=== PATIENT | female | born 1965 | race Caucasian/White ===

== ENCOUNTER 2020-10-18 18:08 | Emergency (ER) | payer SELFPAY | END 2020-10-18 18:09 | disposition left against medical advice (07) | PROVIDERS: Emergency Provider Emergency Medicine | DX: Z04.9 Encounter for examination and observation for unspecified reason (principal) | CPT/HCPCS: 99199 ==

== ENCOUNTER 2020-10-18 21:31 | Emergency (ER) | payer SELFPAY ==
[2020-10-18 21:36] VITALS: BP 161/85; PULSE 67; RESP 16; TEMP 36.5; O2SAT 99
--- NOTE | 2020-10-19 01:26 | PC.NURSE ---
pt states she wants to leave at this time and will go to in the AM. pt instructed on risks of leaving, benefits of staying. informed she can return for any worsening symptoms/concerns. refuses exit vitals.
== END 2020-10-19 01:26 | disposition left against medical advice (07) ==
DX: Z53.21 Procedure and treatment not carried out due to patient leaving prior to being seen by health care provider (principal)
CPT/HCPCS: 99199

== ENCOUNTER 2024-12-15 13:58 | Emergency (ER) | payer OTHER, SELFPAY ==
--- NOTE | ~2024-12-15 | CT_ITS ---
Exam: CT abdomen and pelvis with contrast Clinical History: [Left lower quadrant abdominal pain. Diarrhea. ] Comparison: [ None available] Technique: Multiple axial CT images of the abdomen and pelvis were obtained with IV contrast. Sagittal and coronal reformatted images were obtained. FINDINGS: Lung bases: [There is a 1 cm pulmonary nodule in the right lower lobe. A chest CT is recommended. ] Liver: [Fatty liver.No mass.] [ No intrahepatic biliary duct dilatation.] Gallbladder: [ No wall thickening or stones.] Common bile duct: [ Normal caliber.] [ No stones.] Spleen: [ Within normal limits.] Pancreas: [ No mass. No pancreatic fluid collection.] Adrenals: [ No masses.] Kidneys: [ No masses. No hydronephrosis.][ There is a too small to characterize low-attenuation lesion in the right kidney.] Lymph nodes: [ No adenopathy in the abdomen or pelvis.] Stomach, small bowel and colon: Short segment focal thickening of the staples of the descending colon with a small amount of surrounding fat stranding. Peritoneum cavity: Small to moderate amount of fluid in the pelvis. Bladder: [ Unremarkable.] Osseous structures: [ No acute fracture or destructive lesion.] [ Multilevel degenerative change in the visualized spine.] Abdominal aorta: [ No aneurysm.] Additional findings: There is a 4.6 x 5.6 a 4.0 cm oval isodense mass in the right hemipelvis which abuts the uterus. Differential includes subserosal uterine fibroid or adnexal mass. An MRI of the pelvis with and without contrast is recommended for further assessment. IMPRESSION: 1. Short segment focal thickening of the staples of the descending colon with a small amount of surrounding fat stranding. The finding may be secondary to acute colitis. Recommend follow-up to resolution to exclude an underlying mass. 2. Small to moderate amount of nonspecific fluid in the pelvis. 3. There is a 1.0 cm pulmonary nodule in the right lower lobe. A chest CT is recommended. 4. Fatty liver. 5.There is a 4.6 x 5.6 a 4.0 cm mass in the right hemipelvis which abuts the uterus. Differential includes subserosal uterine fibroid or adnexal mass. An MRI of the pelvis with and without contrast is recommended for further assessment. Reviewed, dictated and finalized at location Q. IMPRESSION: 1. Short segment focal thickening of the staples of the descending colon with a s mall amount of surrounding fat stranding. The finding may be secondary to acute colitis. Recommend follow-up to resolution to exclude an underlying mass. 2. Small to moderate amount of nonspecific fluid in the pelvis. 3. There is a 1.0 cm pulmonary nodule in the right lower lobe. A chest CT is re commended. 4. Fatty liver. 5.There is a 4.6 x 5.6 a 4.0 cm mass in the right hemipelvis which abuts the ut erus. Differential includes subserosal uterine fibroid or adnexal mass. An MRI of the pelvis with and without contrast is recommended for further assessment.
[2024-12-15 14:03] VITALS: BP 174/89; PULSE 79; RESP 20; TEMP 36.7; O2SAT 96
[2024-12-15 14:15] LABS: Hematocrit 41.3 % (37.0-47.0); Hemoglobin 13.5 g/dL (12.0-15.0); Immature Granulocyte Percent A 0.3 % (0-0.5); Lymphocytes Absolute Auto 2.78 K/mm3 (0.9-3.2); Mean Corpuscular HGB Conc 32.7 g/dl (32-36); Mean Corpuscular Hemoglobin 27.4 pg (26-34); Mean Corpuscular Volume 83.9 fl (80-100); Nucleated Red Blood Cells Absolute Auto 0.000 K/mm3 (0.0-0.012); Nucleated Red Blood Cells Perc 0.0 % (0.0-0.2); Platelet Count Result 292 k/mm3 (150-375); Red Blood Count 4.92 M/mm3 (4.2-5.4); White Blood Count 11.6 K/mm3 (4.5-10.0)
[2024-12-15 14:28] LABS: Alanine Aminotransferase 36 U/L (6-35); Albumin Level 4.8 g/dL (3.5-5.1); Alkaline Phosphatase 95 U/L (38-126); Anion Gap 9 mmol/L (4-12); Aspartate Amino Transferase 29 U/L (14-36); Bilirubin,Total 0.6 mg/dL (0.2-1.3); Blood Urea Nitrogen 18 mg/dL (7-17); Calcium 9.8 mg/dL (8.4-10.2); Carbon Dioxide 23 mmol/L (22-30); Chloride 108 mmol/L (98-107); Estimated CRCL calculation 71 ml/min; Estimated Glomerular Filt Rate > 60; Glucose 107 mg/dL (65-110); Lipase 96 U/L (23-300); Potassium 4.0 mmol/L (3.4-5.0); Sodium 140 mmol/L (137-145); Total Protein 7.9 g/dL (6.3-8.2)
--- NOTE | 2024-12-15 14:46 | PC.NURSE ---
Pt. ambulatory to bathroom to provide urine sample.
--- OUTSIDE RECORDS SUMMARY | 2024-12-15 14:51 | XMS_ITS | Clinical Summary ---
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 Role Phone Unavailable Primary Care Provider Unavailabl e Social History Tobacco Use Types Packs/Day Years Used Date Smoking Tobacco: Never Assessed Comments Unknown Sex and Gender Information Value Date Recorded Sex Assigned at Not on file Legal Sex Female 8:01 PM CDT Gender Identity Not on file Sexual Orientation Not on file Plan of Treatment Health Maintenance Due Date Last Done Comments Cervical Cancer Screening Pa p Smear (Age 30 to 64) Every 3 Years 1966 Colorectal Cancer Screening Colonoscopy (10 Years) 1966 Annual Physical 1969 Hepatitis C 1984 DTaP, Tdap and Td Vaccines ( 1 - Tdap) 1985 Hepatitis B Vaccines (1 of 3 - 19+ 3-dose series) 1985 Cervical Cancer Screening Pa p with HPV Testing (Age 30 to 64) Every 5 Years 1996 Cervical Cancer Screening with HPV 1996 Mammogram Screening 2006 Pneumococcal Vaccine: 50+ Ye ars (1 of 1 - PCV) 2016 Zoster Vaccines (1 of 2) 2016 COVID-19 Vaccine ( - 2023-2 5 season) 2024 Meningococcal B Vaccine Aged Out No l onger eligible based on patient's age to complete this topic Meningococcal Vaccine Aged Out No harsh fernando eligible based on patient's age to complete this topic RSV Immunizations Under 20 Months Aged Out No longer eligible based on patient's age to complete this topic
[2024-12-15] MEDS: SODIUM CHLORIDE 0.9% IV 1,000 ML 999 ML IV CONT (15:19)
--- NOTE | 2024-12-15 15:20 | PC.NURSE ---
CT notified that pt. is ready for imaging. Pt. states she has gone through menopause and will sign a form stating she is not .
--- NOTE | 2024-12-15 15:22 | ED.ABDPAIN ---
HPI - Abdominal Pain General Chief Complaint: Abdominal Pain Stated Complaint: abd pain Time Seen by Provider: 12/15/24 14:05 Source: patient Mode of arrival: ambulatory Limitations: no limitations History of Present Illness HPI narrative: Patient is a 59 year old female who presents the ED with report of diarrhea/abdominal pain. Patient reports she ate yogurt last night and did not agree with her. She has had diffuse lower abdominal cramping since then with diarrhea. Reports her most recent episode of diarrhea this morning was slightly pink in color which prompted her presentation. Denies melena. Denies fevers, nausea, vomiting. Related Data Allergies Allergy/AdvReac Type Severity Reaction Status Date / Time Aminoglycosides Allergy Mild Rash Verified 12/15/24 14:07 bacitracin Allergy Mild Rash Verified 12/15/24 14:07 neomycin Allergy Mild Rash Verified 12/15/24 14:07 Sulfa (Sulfonamide Allergy Mild Rash Verified 12/15/24 14:07 Antibiotics) POLYMYXINBSULF Allergy Mild Rash Uncoded 06/23/08 14:28 Review of Systems Review of Systems: All systems reviewed & are unremarkable except as noted in HPI. All systems reviewed & are unremarkable except as noted in HPI and below Exam Narrative: GENERAL: Well appearing, obese with BMI of 36.2, non-toxic, in no acute distress. HEAD: Normocephalic, atraumatic. RESPIRATORY: Airway patent, respirations nonlabored. Clear to auscultation bilaterally, no rales, rhonchi, wheezing. CARDIOVASCULAR: Regular rate and rhythm without murmurs, rubs, or gallops. ABDOMINAL: Soft, mild tenderness to palpation in left lower abdomen, no rebound, nondistended. Normoactive BS. MUSCULOSKELETAL: Moves all extremities. No gross deformities. SKIN: Warm, dry, normal color. NEURO: A&O X3. Speech clear. Cranial nerves II-XII grossly intact. Steady gait. No ataxic movements. PSYCHIATRIC: Appropriate mood and affect. Normal interaction. Course Vital Signs Vital signs: Vital Signs Temperature 98.1 F 12/15/24 14:03 Pulse Rate 79 12/15/24 14:03 Respiratory Rate 20 12/15/24 14:03 Blood Pressure 174/89 H 12/15/24 14:03 Pulse Oximetry 96 12/15/24 14:03 Oxygen Delivery Room Air 12/15/24 14:03 Temperature 98.1 F 12/15/24 14:03 Pulse Rate 63 12/15/24 17:03 Respiratory Rate 16 12/15/24 17:03 Blood Pressure 151/90 H 12/15/24 17:03 Pulse Oximetry 99 12/15/24 17:03 Oxygen Delivery Room Air 12/15/24 14:03 MDM - Abdominal Pain MDM Narrative Medical decision making narrative: Patient presented to ED with left lower abdominal cramping and diarrhea. Began after eating yogurt last night. Vital signs stable upon arrival. Patient in no acute distress. Cbc with blood cell count of 11.6. Stable electrolytes. Normal kidney function. Mag WNL. UA w/o signs of infection, trace ketones. Patient given fluids. She did not want anything for pain currently. CT abd/pelvis obtained: IMPRESSION: 1. Short segment focal thickening of the staples of the descending colon with a small amount of surrounding fat stranding. The finding may be secondary to acute colitis. Recommend follow-up to resolution to exclude an underlying mass. 2. Small to moderate amount of nonspecific fluid in the pelvis. 3. There is a 1.0 cm pulmonary nodule in the right lower lobe. A chest CT is recommended. 4. Fatty liver. 5.There is a 4.6 x 5.6 a 4.0 cm mass in the right hemipelvis which abuts the uterus. Differential includes subserosal uterine fibroid or adnexal mass. An MRI of the pelvis with and without contrast is recommended for further assessment. Colitis is consistent with clinical picture. Will treat for such. Will start on abx given elevated WBC. Will also rx bentyl/zofran/short course of [place] for home. Did update patient on pulmonary nodule and pelvic mass, advised close f/u with PCP for further imaging of this. Patient given strict return precautions. She is in agreement plan. Discharged in stable condition. Medical Records Attestation: I reviewed the patient's medical records. Lab Data Attestation: I reviewed the patient's lab results. 12/15/24 14:09 12/15/24 14:09 Labs: Lab Results 12/15/24 12/15/24 12/15/24 Range/Units 14:06 14:09 15:12 WBC 11.6 H (4.5-10.0) K/mm3 RBC 4.92 (4.2-5.4) M/mm3 Hgb 13.5 (12.0-15.0) g/dL Hct 41.3 (37.0-47.0) % MCV 83.9 (80-100) fl MCH 27.4 (26-34) pg MCHC 32.7 (32-36) g/dl RDW 13.5 (11.5-14.5) % Plt Count 292 (150-375) k/mm3 MPV 10.7 H (7.4-10.4) fl Immature Gran % (Auto) 0.3 (0-0.5) % Neut % (Auto) 70.7 (45.5-73.1) % Lymph % (Auto) 23.9 (18.3-44.2) % [place] % (Auto) 4.4 (2.6-8.5) % Eos % (Auto) 0.4 (0-4.4) % Baso % (Auto) 0.3 (0.2-1.2) % Lymph # (Auto) 2.78 (0.9-3.2) K/mm3 [place] # (Auto) 0.5 (0.1-0.6) K/mm3 Eos # (Auto) 0.1 (0-0.3) K/mm3 Baso # (Auto) 0.0 (0.0-0.1) K/mm3 Abs Immat Gran (auto) 0.03 (0.00-0.031) K/mm3 Absolute Neuts (auto) 8.2 H (1.3-6.7) K/mm3 Absolute Nucleated RBC 0.000 (0.0-0.012) K/mm3 Nucleated RBC % 0.0 (0.0-0.2) % Sodium 140 (137-145) mmol/L Potassium 4.0 (3.4-5.0) mmol/L Chloride 108 H (98-107) mmol/L Carbon Dioxide 23 (22-30) mmol/L Anion Gap 9 (4-12) mmol/L BUN 18 H (7-17) mg/dL Creatinine 0.92 (0.7-1.0) mg/dL Estim Creat Clear Calc 71 ml/min Estimated GFR > 60 (59 - ) Glucose 107 (65-110) mg/dL Calcium 9.8 (8.4-10.2) mg/dL Magnesium 2.0 (1.6-2.3) mg/dL Total Bilirubin 0.6 (0.2-1.3) mg/dL AST 29 (14-36) U/L ALT 36 H (6-35) U/L Alkaline Phosphatase 95 (38-126) U/L Total Protein 7.9 (6.3-8.2) g/dL Albumin 4.8 (3.5-5.1) g/dL Lipase 96 (23-300) U/L Urine Color Yellow (Yellow) Urine Appearance Clear (Clear) Urine pH 5.5 (5.0-9.0) Ur Specific [place] 1.011 (1.001-1.035) Urine Protein Negative (Negative) mg/dL Urine Glucose (UA) Negative (Negative) mg/dL Urine Ketones Trace H (Negative) mg/dL Ur Blood (Man) Trace (Negative) Urine Nitrate Negative (Negative) Urine Bilirubin Negative (Negative) Urine Urobilinogen 0.2 (<2.0) mg/dL Leukocyte Esterase Rfl Negative (Negative) ELIZABETH/UL Urine RBC 0-2 (0-2) /hpf Urine WBC 0-5 (0-3) /hpf Ur Squamous Epith Cells None seen (Few) /hpf Urine Bacteria None seen /hpf Urine Casts 0-2 Imaging Data Attestation: I personally reviewed and interpreted this imaging study as follows: Radiologist's impression: ITS Impressions Abdomen/Pelvis CT 12/15/24 16:24 IMPRESSION: 1. Short segment focal thickening of the staples of the descending colon with a small amount of surrounding fat stranding. The finding may be secondary to acute colitis. Recommend follow-up to resolution to exclude an underlying mass. 2. Small to moderate amount of nonspecific fluid in the pelvis. 3. There is a 1.0 cm pulmonary nodule in the right lower lobe. A chest CT is recommended. 4. Fatty liver. 5.There is a 4.6 x 5.6 a 4.0 cm mass in the right hemipelvis which abuts the uterus. Differential includes subserosal uterine fibroid or adnexal mass. An MRI of the pelvis with and without contrast is recommended for further assessment. Discharge Plan Discharge Clinical Impression: Colitis, Incidental pulmonary nodule, Pelvic mass Patient Disposition: Home Condition: Stable Instructions: Antibiotic Form, Clear Liquid Diet (ED), Colitis (ED) Additional Instructions: Take antibiotics as prescribed (Ciprofloxacin/Flagyl). Recommend Tylenol, ibuprofen, Bentyl as needed for further abdominal discomfort. [place] as needed for more severe pain. Utilize zofran as needed for further nausea. Increase fluid intake. Recommend electrolyte rich fluids, gatorade, pedialyte, body armour. Recommend clear liquids or bland diet until symptoms improve, such as bananas, rice, applesauce, toast, or crackers. Follow up with your primary care doctor for further evaluation. Return to the ED if you experience worsening or severe symptoms, unable to keep down food or drink, severe pain, fevers, rectal bleeding, vomiting blood, or any other symptoms of concern. Follow-up with your primary care doctor for further evaluation of incidental findings noted above. Patient Language: Belarusian Prescriptions: New metronidazole 500 mg tablet 500 mg PO Q8H 7 Days Qty: 21 0RF ciprofloxacin HCl 500 mg tablet 500 mg PO Q12H 7 Days Qty: 14 0RF dicyclomine 20 mg tablet 20 mg PO TID PRN (Reason: Abdominal Discomfort) Qty: 15 0RF ondansetron 4 mg tablet,disintegrating 4 mg PO Q8H PRN (Reason: nausea and vomiting) Qty: 15 0RF hydrocodone-acetaminophen 5-325 mg tablet 1 tablet PO Q6H PRN (Reason: pain) Qty: 7 0RF Follow-up/Referrals: [place], [Primary Care Provider] Time of Disposition: 17:46
--- NOTE | 2024-12-15 15:36 | PC.NURSE ---
Lab called to add on ordered magnesium.
[2024-12-15 15:45] LABS: Add Urine Microscopic? YES; Appearance Urine Clear (Clear); Glucose Urine UA Negative (Negative); Leukocyte Esterase Ur Negative LEU/UL (Negative); Nitrate Urine Negative (Negative); Non Pathogenic Casts 0-2; Specific Grav Ur 1.011 (1.001-1.035)
--- OUTSIDE RECORDS SUMMARY | 2024-12-15 15:50 | XMS_ITS | Clinical Summary ---
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
[2024-12-15 15:57] LABS: Magnesium 2.0 mg/dL (1.6-2.3)
[2024-12-15 17:03] VITALS: BP 151/90; PULSE 63; RESP 16; O2SAT 99
[2024-12-15 18:14] VITALS: BP 145/90; PULSE 94; RESP 16; O2SAT 96
== END 2024-12-15 17:57 | disposition home or self-care (01) ==
PROVIDERS: Emergency Provider Physician Assistant
DX: K52.9 Noninfective gastroenteritis and colitis, unspecified (principal); R91.1 Solitary pulmonary nodule; N94.9 Unspecified condition associated with female genital organs and menstrual cycle; K76.0 Fatty (change of) liver, not elsewhere classified
CPT/HCPCS: 36415; 74177; 80053; 81001; 83690; 83735; 85025; 96360; 99284; J7030; Q9967